=== PATIENT | male | born 1995 | race Caucasian/White ===

== ENCOUNTER 2018-02-17 06:48 | Day surgery (SDC) | payer OTHER ==
[2014-02-17 13:12] VITALS: BMI 28.7
[2018-02-17] MEDS ORDERED: Propofol 10 mg/ml Inj (20 ML) ONE (08:55)
[2018-02-17] MEDS ORDERED: Midazolam 2 MG/2 ML VIAL ONE (08:55)
[2018-02-17] MEDS ORDERED: Sodium Chloride 0.9% 1,000 ML IV SCH (09:45)
[2018-02-17 11:35] VITALS: BP 139/78; PULSE 82; RESP 16; TEMP 98; O2SAT 98
== END 2018-02-17 11:07 | disposition home or self-care (01) ==
LOC: ENDO 06:48
PROVIDERS: ATTEND Internal Medicine Gastroenterology
DX: K29.50 Unspecified chronic gastritis without bleeding (principal); R10.84 Generalized abdominal pain; K29.80 Duodenitis without bleeding; K52.9 Noninfective gastroenteritis and colitis, unspecified; K21.9 Gastro-esophageal reflux disease without esophagitis; K86.89 Other specified diseases of pancreas
CPT/HCPCS: 43239; 88305; 88342; J2001; J2250; J2704; J3010; J7030; J7040